=== PATIENT | female | born 1965 | race Caucasian/White ===

== ENCOUNTER → 2024-04-24 | Outpatient (CLI) | payer OTHER ==
[2024-04-24 14:31] LABS: APPEARANCE, URINE HAZY (CLEAR); BACTERIA, URINE AUTO NEGATIVE (NEGATIVE); BILIRUBIN, URINE AUTO NEGATIVE (NEGATIVE); BLOOD, URINE BLOOD 1+ (NEGATIVE); COLOR, URINE YELLOW (YELLOW); GLUCOSE, URINE (UA) AUTO NEGATIVE (NEGATIVE); KETONE, URINE AUTO NEGATIVE (NEGATIVE); LEUKOCYTE ESTERASE, URINE AUTO NEGATIVE (NEGATIVE); NITRITE, URINE AUTO NEGATIVE (NEGATIVE); PROTEIN, URINE AUTO 2+ mg/dL (NEGATIVE); RBC, URINE AUTO 1 /HPF (0-3); SPECIFIC GRAVITY URINE AUTO 1.023 (1.002-1.035); SQUAMOUS EPITHELIAL CELL UR AU 2 /HPF (0-6); UROBILINOGEN, URINE AUTO 0.2 mg/dL (0.0-2.0); WBC, URINE AUTO 1 /HPF (0-3)
[2024-04-24 14:43] LABS: CREATININE, URINE 123.3 MG/DL
[2024-04-24 14:57] LABS: MAU/CREAT RATIO 331.7 MCG/MG (0.0-30.0)
[2024-04-24 18:41] LABS: ALBUMIN 3.7 G/DL (3.2-5.2); ALKALINE PHOSPHATASE 90 U/L (35-104); ALT/SGPT 66 U/L (7.0-40); AST/SGOT 33 U/L (<34); BILIRUBIN,TOTAL 0.4 MG/DL (0.3-1.2); BLOOD UREA NITROGEN 19 MG/DL (9-23); CALCIUM LEVEL 9.9 MG/DL (8.3-10.6); CARBON DIOXIDE LEVEL 23 MMOL/L (20-31); CHLORIDE LEVEL 112 MMOL/L (98-107); CHOLESTEROL LEVEL 292 MG/DL (<200); CHOLESTEROL RISK RATIO 8.63 (<5); CREATININE FOR GFR 0.75 MG/DL (0.55-1.30); GLOMERULAR FILTRATION RATE > 60.0 (>45); GLUCOSE, FASTING 68 MG/DL (74-106); HDL CHOLESTEROL 33.8 MG/DL (>40); LDL CHOLESTEROL 231.4 MG/DL (<100); NON-HDL-C 258.2 MG/DL; POTASSIUM SERUM 4.6 MMOL/L (3.5-5.1); SODIUM LEVEL 141 MMOL/L (136-145); TOTAL PROTEIN 7.9 G/DL (5.7-8.2); TRIGLYCERIDES LEVEL 134 MG/DL (<150)
[2024-04-24 18:45] LABS: THYROID STIMULATING HORMONE 3.432 uIU/ML (0.55-4.78)
[2024-04-24 18:46] LABS: TOTAL 25(OH) VITAMIN D 30.9 NG/ML (20.0-100.0)
[2024-04-24 18:57] LABS: HEMOGLOBIN A1c 4.6 % (4.0-6.0)
== END ==
LOC: M RAD 12:17
PROVIDERS: ATTEND Physician Assistant
DX: R07.9 Chest pain, unspecified (principal); I10 Essential (primary) hypertension; Z11.9 Encounter for screening for infectious and parasitic diseases, unspecified; E66.9 Obesity, unspecified; E55.9 Vitamin D deficiency, unspecified

== ENCOUNTER → 2024-06-11 | Outpatient (REF) | payer OTHER ==
[~2024-06-11] MED LIST: CARV3.12 PO; LOSA100T46 PO; ROSU40TA81 PO
== END ==
LOC: M LAB REF 17:34
PROVIDERS: ATTEND Physician Assistant
DX: Z12.4 Encounter for screening for malignant neoplasm of cervix (principal)

== ENCOUNTER → 2024-06-12 | Outpatient (CLI) | payer OTHER | LOC: M RAD 10:23 | PROVIDERS: ATTEND Physician Assistant | DX: Z87.891 Personal history of nicotine dependence (principal) ==

== ENCOUNTER → 2024-07-24 | Outpatient (CLI) | payer OTHER ==
[~2024-07-24] MED LIST changes: +AMLO1TAB24 PO; +LISI10TA22 PO
== END ==
LOC: M WHC 07:40
PROVIDERS: ATTEND Physician Assistant
DX: R92.8 Other abnormal and inconclusive findings on diagnostic imaging of breast (principal)

== ENCOUNTER → 2024-09-12 | Outpatient (CLI) | payer OTHER ==
[2024-09-12 10:50] VITALS: TEMP 98.5
[2024-09-12 11:44] VITALS: BP 132/82; O2SAT 98
== END ==
LOC: M WHCPRO 10:15
PROVIDERS: ATTEND Physician Assistant
DX: R92.8 Other abnormal and inconclusive findings on diagnostic imaging of breast (principal); N63.41 Unspecified lump in right breast, subareolar

== ENCOUNTER 2024-10-03 01:14 | Inpatient (IN) | payer OTHER ==
[~2024-10-03] VITALS: Ht 162.6 cm; Wt 95.5 kg
[2024-10-03] VITALS (10 sets, daily range): BP systolic 100–125; BP diastolic 57–75; TEMP 97.3–98.2; O2SAT 88–95
[2024-10-03] MEDS: NS (Normal Saline) 0.9% 1,000 ML IV SCH ×2 (02:15→05:05)
[2024-10-03] MEDS ORDERED: MIDAZOLAM INJ 2MG/2ML VIAL As Ordered ONE (03:12)
[2024-10-03] MEDS ORDERED: propofoL 200 MG/20 ML VIAL As Ordered ONE (03:13)
[2024-10-03] MEDS ORDERED: ROCURONIUM BROMIDE 50MG/5ML VIAL As Ordered ONE (03:13)
[2024-10-03] MEDS ORDERED: LIDOCAINE 2% 100MG/5ML SDV (FOR ANES.) As Ordered ONE (03:13)
[2024-10-03] MEDS ORDERED: ONDANSETRON 4MG 2ML VIAL As Ordered ONE (03:13)
[2024-10-03] MEDS ORDERED: fentaNYL 100 MCG/2 ML INJECTION As Ordered ONE (03:13)
[2024-10-03] MEDS ORDERED: SUGAMMADEX SODIUM 500 MG/5 ML VIAL (BRIDION) As Ordered ONE (03:21)
[2024-10-03] MEDS ORDERED: ACETAMINOPHEN 1000MG/100ML IV BAG As Ordered ONE (04:03)
[2024-10-03] MEDS ORDERED: KETOROLAC 30 MG/ML 1ML VIAL As Ordered ONE (04:07)
[2024-10-03] MEDS ORDERED: dexmedeTOMIDine (4MCG/ML)200MCG/50ML BTL (PRECEDEX) As Ordered ONE (04:17)
[2024-10-03] MEDS ORDERED: ONDANSETRON 4MG 2ML VIAL IV PRN (05:05)
[2024-10-03] MEDS ORDERED: IPRATROPIUM 0.5MG/ALBUTEROL 2.5MG INH SOL UD 3ML NEB PRN (05:05)
[2024-10-03] MEDS ORDERED: MORPHINE 4 MG/ML 1ML VIAL IV PRN (05:05)
[2024-10-03] MEDS ORDERED: MORPHINE 2 MG/ML 1ML VIAL IV PRN ×2 (05:05)
[2024-10-03] MEDS: PIPERACILLIN/TAZOBACTAM SOD 3.375 GM in DEXTROSE 5% (D5W) ADV/MINI-BAG 50 ML IV SCH (05:30)
[2024-10-03] MEDS: IPRATROPIUM 0.5MG/ALBUTEROL 2.5MG INH SOL UD 3ML NEB SCH (08:00)
[2024-10-03] MEDS: KETOROLAC 30 MG/ML 1ML VIAL IV SCH (09:44)
[2024-10-03] MEDS ORDERED: TRIA1CR80 TOP (10:13)
[2024-10-03] MEDS ORDERED: CICL6.6S TOP (10:13)
[2024-10-03] MEDS ORDERED: SPIR-10 PO (10:13)
[2024-10-03] MEDS ORDERED: HOME MED LIST COMPLETE! XX SCH (10:15)
[2024-10-04 03:56] VITALS: BP 124/74; TEMP 98.1; O2SAT 91
[2024-10-04 08:00] VITALS: BP 138/81; TEMP 98.2; O2SAT 90
[2024-10-04] MEDS ORDERED: AUGM500T34 PO (08:03)
== END 2024-10-04 09:45 | disposition home or self-care (01) | DRG 225 ==
LOC: EDBD 01:14 → M ED 01:14 → M SDC 02:59 → M ED INP 05:05 → M MS5PR 06:30
PROVIDERS: ADMIT Surgery; ATTEND Surgery
PROC: 0DTJ4ZZ Resection of Appendix, Percutaneous Endoscopic Approach (ICD-10-PCS; principal; 2024-10-03 03:47)
DX: K35.80 Unspecified acute appendicitis (principal); I10 Essential (primary) hypertension; I25.10 Atherosclerotic heart disease of native coronary artery without angina pectoris; E78.00 Pure hypercholesterolemia, unspecified; Z79.899 Other long term (current) drug therapy

== ENCOUNTER → 2024-10-29 | Outpatient (REF) | payer OTHER ==
[~2024-10-29] MED LIST changes: +AUGM500T34 PO; +CICL6.6S TOP; +SPIR-10 PO; +TRIA1CR80 TOP
[2024-10-29 14:09] LABS: APPEARANCE, URINE CLOUDY (CLEAR); BACTERIA, URINE AUTO NEGATIVE (NEGATIVE); BILIRUBIN, URINE AUTO 1+ (NEGATIVE); BLOOD, URINE BLOOD NEGATIVE (NEGATIVE); COLOR, URINE AMBER (YELLOW); GLUCOSE, URINE (UA) AUTO NEGATIVE (NEGATIVE); KETONE, URINE AUTO TRACE mg/dL (NEGATIVE); LEUKOCYTE ESTERASE, URINE AUTO NEGATIVE (NEGATIVE); MUCUS, URINE SMALL (NEGATIVE); NITRITE, URINE AUTO NEGATIVE (NEGATIVE); PROTEIN, URINE AUTO 3+ mg/dL (NEGATIVE); RBC, URINE AUTO 1 /HPF (0-3); SPECIFIC GRAVITY URINE AUTO 1.025 (1.002-1.035); SQUAMOUS EPITHELIAL CELL UR AU 5 /HPF (0-6); WBC, URINE AUTO 8 /HPF (0-3)
[2024-10-29 14:50] LABS: CREATININE, URINE 376.2 MG/DL; MAU/CREAT RATIO 149.6 MCG/MG (0.0-30.0)
[2024-10-29 18:38] LABS: CALCIUM LEVEL 9.5 MG/DL (8.3-10.6); CREATININE FOR GFR 1.18 MG/DL (0.55-1.30); GLOMERULAR FILTRATION RATE 52.9 (>45); POTASSIUM SERUM 5.1 MMOL/L (3.5-5.1)
== END ==
LOC: M LAB REF 13:47
PROVIDERS: ATTEND Physician Assistant
DX: I10 Essential (primary) hypertension (principal)